=== PATIENT | female | born 1980 | race Caucasian/White ===

== ENCOUNTER 2016-06-15 22:35 | Emergency (ER) | payer BC ==
--- NOTE | ~2016-06-15 | ER ---
PATIENT'S NAME: HIEN WOOTEN [facility] AGE: 36 Y [address] ROOM: [place], [place] [id number] LOCATION: ED ADMIT DATE: 06/15/2016 ER/Outpatient Report DISCHARGE DATE: 06/16/2016 FAMILY PHYSICIAN: Priya Maynard MD ATTENDING PHYSICIAN: Yuan Fajardo CHIEF COMPLAINT: Chest pain and shortness of breath. HISTORY OF PRESENT ILLNESS: The patient notes that for the last few days she has developed more shortness of breath and some chest discomfort. It is a tingling, pressure, tightness that is in the middle of her chest and between her shoulder blades, mostly on the left side. She has an anxious sensation about her and notes that this has been slowly progressively worse over the last week. She does have a 6-month- old at home. Of note, her , who supposedly was healthy, recently did have cardiac arrest in the emergency department and was subsequently revived and is otherwise doing well now; however, that has placed a significant amount of stress on her as well. She denies any prior history of blood clots. She is a nonsmoker with no medical issues that she is aware of such as hypertension, diabetes, and high cholesterol. No personal or family history of cardiac disease. No recent hospitalizations in the last few months. No recent long travel. She is not on any estrogen medications. PAST MEDICAL HISTORY: Documented on the record and reviewed by me. SOCIAL HISTORY: Documented on the record and reviewed by me. MEDICATIONS: Documented on the record and reviewed by me. ALLERGIES: DOCUMENTED ON THE RECORD AND REVIEWED BY ME. REVIEW OF SYSTEMS: All systems were reviewed and negative except as noted in the HPI. PHYSICAL EXAMINATION: VITAL SIGNS: Blood pressure 172/93, pulse 98, respiratory rate is 16, temperature 98.8, and SpO2 is 97% on room air. Pain 0/10 currently. GENERAL: Age-appropriate female, very anxious in appearance, tearful with no obvious abnormalities. No respiratory distress. NEUROLOGIC: Awake and alert. GCS is 15. No focal deficits. No asymmetry on PATIENT'S NAME: HIEN WOOTEN [facility] AGE: 36 Y [address] ROOM: [place], [place] [address] LOCATION: ED ADMIT DATE: 06/15/2016 ER/Outpatient Report DISCHARGE DATE: 06/16/2016 FAMILY PHYSICIAN: Priya Maynard MD ATTENDING PHYSICIAN: Yuan Fajardo exam. No difficulty walking. HEENT: Normocephalic, atraumatic. Eyes are PERRL. Oropharynx is clear. NECK: Supple. Trachea is midline. CHEST: Heart has regular rate and rhythm with no murmurs. Lungs are clear to auscultation bilaterally with no rhonchi, wheezes, or rales. There is no tenderness with chest wall palpation. BACK: Nontender to palpation throughout. There is no CVA tenderness. ABDOMEN: Obese, but soft, nontender, nondistended. No rebound or guarding. EXTREMITIES: Warm and well perfused. There is no evidence of DVT in the upper or lower extremities. SKIN: Warm, dry, and intact. LABORATORY DATA AND X-RAYS: Chest x-ray is without abnormality per my review. EKG is with some artifact, but no evidence of acute ischemia. Initial EKG, rate of 90 with normal intervals and axis. Repeat is unchanged. Labs: Initial and repeat troponin and CK-MB below threshold, D-dimer 0.34. CMS is notable for potassium of 3.6, glucose of 132, and otherwise unremarkable. Magnesium is 1.9. WBC is 15.9, hemoglobin is 13.4, platelets of 284. INR is 0.9. No other abnormalities. IMPRESSION: 1. Noncardiac chest discomfort. 2. Likely anxiety. 3. Leukocytosis, unexplained. EMERGENCY DEPARTMENT COURSE: The patient was seen and evaluated at bedside. Based on her history, I felt it to be extremely unlikely to be cardiac in origin. She has minimal risk factors and symptoms have been present for a week. Not consistent with DVT; however, D-dimer was in fact below threshold. Repeat EKG and enzymes remain not indicative of cardiac disease. In this case, I think that the patient is not suffering from a cardiac cause of chest pain. She was given some Ativan and a GI cocktail with complete resolution of her symptoms. The patient is under a very significant amount of stress currently with her recovering from his heart attack and trying to take care of a 6-month-old at home. The patient was feeling much better upon discharge. She will be sent home with instructions to follow up with her primary care physician for further evaluation as needed. I do not believe that she requires urgent cardiac evaluation within the next week at this time. It may be appropriate for her, but I will defer that decision to her and her primary care physician. The patient was amenable to this plan. All questions were answered to the best of my ability, and the patient was discharged in good condition with normal vital signs. PATIENT'S NAME: HIEN WOOTEN [facility] AGE: 36 Y [address] ROOM: [place] [id number] LOCATION: [facility] ADMIT DATE: 06/15/2016 ER/Outpatient Report DISCHARGE DATE: 06/16/2016 FAMILY PHYSICIAN: Priya Maynard MD ATTENDING PHYSICIAN: Yuan Fajardo YUAN FAJARDO MD JH/modl /[id number] d: 06/17/16905 t: 06/26/16 0934, OUTPATIENT REPORT
[~2016-06-15 22:35] MED LIST: FEOSOL325 MG PO; LEVOTHYROXINE50 MCG PO; MOTRIN800 MG PO; PERCOCET 5-3251 EACH PO; PRENATAL 1+1)(P1 TAB PO; PROTONIX40 MG PO
[2016-06-15 23:24] LABS: BASOPHIL # 0.1 K/uL (0.0-0.2); BASOPHIL % 0.4 %; EOSINOPHIL # 0.1 K/uL (0.0-0.5); EOSINOPHIL % 0.6 %; HEMATOCRIT 41.6 % (33.0-46.0); HEMOGLOBIN 13.4 g/dL (11.0-15.0); IMMATURE GRANULOCYTE # 0.2 K/uL (0.0-0.3); IMMATURE GRANULOCYTE % 0.9 %; LYMPHOCYTE % 19.2 %; MCH 30.7 pg (27.0-34.0); MCHC 32.2 gm/dL (32.0-36.5); MCV 95.2 fl (83.0-98.0); MONOCYTE % 6.2 %; MPV 10.2 fl (9.4-12.4); NEUTROPHIL # (ANC) 11.5 K/uL (1.8-7.8); NEUTROPHIL % 72.7 %; NRBC % 0 /100WBC (0-0.00); PLATELET COUNT 284 K/uL (150-450); RDW-CV 13.8 % (11.9-14.6); WBC 15.9 K/uL (4.0-11.0)
[2016-06-15 23:25] LABS: RBC 4.37 M/uL (3.50-5.50)
[2016-06-15 23:34] LABS: INR - (THERAPEUTIC) 0.9 (0.9-1.1); PROTIME 9.7 SECONDS (9.6-11.1); PTT 28 SECONDS (25-32)
[2016-06-15 23:45] LABS: ALBUMIN 3.4 gm/dL (3.5-5.0); ALK PHOS 88 IU/L (33-138); ALT 33 IU/L (12-78); ANION GAP 14.6 (10.0-19.0); AST 19 IU/L (10-40); BLOOD UREA NITROGEN 17 mg/dL (6-24); CALCIUM 8.9 mg/dL (8.5-10.5); CHLORIDE 108 mMol/L (96-110); CO2 24 mMol/L (22-32); CPK 64 IU/L (21-215); CREATININE 0.8 mg/dL (0.5-1.1); ESTIMATED GFR (MDRD EQUATION) > 60; MAGNESIUM 1.9 mg/dL (1.3-2.6); POTASSIUM 3.6 mMol/L (3.7-5.1); SODIUM 143 mMol/L (135-145); TOTAL BILIRUBIN 0.2 mg/dL (0.0-1.5); TOTAL PROTEIN 7.3 g/dL (6.0-8.4)
[2016-06-16 01:41] LABS: CPK 59 IU/L (21-215)
== END 2016-06-16 02:11 | disposition disaster alternative care site (69) ==
LOC: GMED 22:35
PROVIDERS: Emergency Medicine
DX: R07.89 Other chest pain (principal); I10 Essential (primary) hypertension; E11.9 Type 2 diabetes mellitus without complications; E78.00 Pure hypercholesterolemia, unspecified; D72.829 Elevated white blood cell count, unspecified
CPT/HCPCS: J2060